=== PATIENT | female | born 1985 | race Caucasian/White ===

== ENCOUNTER 2024-03-15 09:04 | Outpatient (REF) | payer OTHER, SELFPAY ==
[2024-03-15 12:36] LABS: Alanine Aminotransferase 8 U/L (0-31); Alkaline Phosphatase 84 U/L (39-117); Anion Gap 12 (12-20); Aspartate Amino Transferase 13 U/L (5-31); Bilirubin Total 0.4 mg/dL (0.0-1.0); Blood Urea Nitrogen 13 mg/dL (9-16); Calcium 9.1 mg/dL (8.4-10.2); Carbon Dioxide 23 mmol/L (22-29); Chloride 110 mmol/L (96-108); Estimated Glomerular Filt Rate > 60; Glucose Random 91 mg/dL (60-115); Potassium 3.5 mmol/L (3.3-5.1); Sodium 141 mmol/L (135-145)
[2024-03-15 12:46] LABS: TSH reflex Free T4 0.43 uIU/mL (0.32-4.0)
== END 2024-03-15 09:05 | disposition home or self-care (01) ==
LOC: HO.HHCL 09:04
PROVIDERS: Visit Provider Internal Medicine Geriatric Medicine
DX: E03.9 Hypothyroidism, unspecified (principal); I10 Essential (primary) hypertension
CPT/HCPCS: 36415; 80053; 84443